=== PATIENT | female | born 1985 | race Asian ===

== ENCOUNTER 2019-03-26 06:31 | Day surgery (SDC) | payer BC, OTHER ==
[~2019-03-26 06:31] MED LIST: Sodium Chloride 0.9% 10 ML SDV IV PRN; Sodium Chloride 0.9% 10 ML Syringe FLUSH PRN; Sodium Chloride 0.9% 2.5 ML Syringe FLUSH PRN
--- NOTE | 2019-03-26 07:03 | PCM.PREANE ---
Preanesthetic Assessment - Anesthesia/Transfusion/Family Hx Anesthesia History: Prior Anesthesia Without Reaction Family History of Anesthesia Reaction: No Transfusion History: No Prior Transfusion(s) Intubation History: Unknown - Review of Systems General: No Symptoms Pulmonary: No Symptoms Cardiovascular: No Symptoms Gastrointestinal: No Symptoms Neurological: No Symptoms Other: Reports: None - Physical Assessment Vital Signs: Last Vital Signs Temp 36.0 C 03/26/19 06:40 Pulse 66 03/26/19 06:40 Resp 16 03/26/19 06:40 BP 90/55 L 03/26/19 06:40 Pulse Ox 100 03/26/19 06:40 Height: 5 ft 2 in Weight: 60.328 kg ASA Class: 1 Mental Status: Alert & Oriented x3 Airway Class: Mallampati = 1 Dentition: Reports: Normal Dentition Thyro-Mental Finger Breadths: 3 Mouth Opening Finger Breadths: 3 ROM/Head Extension: Full Lungs: Clear to Auscultation, Normal Respiratory Effort Cardiovascular: Regular Rate, Regular Rhythm - Allergies Allergies/Adverse Reactions: Allergies Allergy/AdvReac Type Severity Reaction Status Date / Time No Known Allergies Allergy Verified 03/21/19 13:40 - Blood Blood Available: No - Anesthesia Plan Pre-Op Medication Ordered: None - Acknowledgements Anesthesia Type Planned: MAC Pt an Appropriate Candidate for the Planned Anesthesia: Yes Alternatives and Risks of Anesthesia Discussed w Pt/Guardian: Yes PreAnesthesia Questionnaire - Past Health History Medical/Surgical History: Denies Medical/Surgical History HEENT History: Reports: Other (See Below) Other HEENT History: wears glasses PLAN COORDINATOR History: Reports: Other OB/BYN History: c/s x2 - Past Surgical History Head Surgeries/Procedures: Reports: None Female Surgical History: Reports: Section Other Female Surgeries/Procedures: x3 - SUBSTANCE USE Smoking Status *Q: Never Smoker Recreational Drug Use History: No - HOME MEDS Home Medications: Home Meds Multivitamin [Daily Multiple Vitamin] 1 tab PO DAILY 03/21/19 [History] - CURRENT (IN HOUSE) MEDS Current Meds: Current Medications Sodium Chloride (Saline Flush) 10 ml FLUSH ASDIRECTED PRN PRN Reason: Keep Vein Open Sodium Chloride (Saline Flush) 2.5 ml FLUSH ASDIRECTED PRN PRN Reason: Keep Vein Open Sodium Chloride (Normal Saline) 10 ml IV ASDIRECTED PRN PRN Reason: IV Use
[2019-03-26] MEDS ORDERED: Lactated Ringers 1,000 ML IV SCH (07:15)
[2019-03-26] MEDS ORDERED: Lidocaine 2% 100 MG/5 ML Syringe ONE (07:23)
[2019-03-26] MEDS ORDERED: Ondansetron 4 MG/2 ML SDV ONE (07:23)
[2019-03-26] MEDS ORDERED: Dexamethasone 4 MG/ML 5 ML MDV ONE (07:23)
[2019-03-26] MEDS ORDERED: Propofol 200 MG/20 ML SDV ONE (07:24)
[2019-03-26] MEDS ORDERED: Midazolam 1 MG/ML 2 ML SDV ONE (07:24)
[2019-03-26] MEDS ORDERED: fentaNYL 250 MCG/5 ML SDV ONE (07:24)
[2019-03-26] MEDS ORDERED: Lidocaine 1% with EPINEPHrine 1:100,000 20 ML MDV ONE (07:26)
--- NOTE | 2019-03-26 08:29 | PCM.OPNOTE ---
- General Post-Op/Procedure Note Date of Surgery/Procedure: 03/26/19 Operative Procedure(s): LEEP of cervix Findings: STEFAN II Pre Op Diagnosis: STEFAN II Post-Op Diagnosis: Same Anesthesia Technique: MAC Primary Surgeon: Yris Sen Fluid Replacement, Intraop: 500 EBL in mLs: 5 Complications: none known Condition: Good Free Text/Narrative:: Dictation [id number]
--- NOTE | 2019-03-26 08:52 | PCM.POSTAN ---
POST ANESTHESIA ASSESSMENT - MENTAL STATUS Mental Status: Alert, Oriented - VITAL SIGNS Vital Signs: Last Vital Signs Temp 36.4 C 03/26/19 08:25 Pulse 65 03/26/19 08:44 Resp 17 03/26/19 08:44 BP 88/50 L 03/26/19 08:44 Pulse Ox 99 03/26/19 08:44 - RESPIRATORY Respiratory Status: Respiratory Rate WNL, Airway Patent, O2 Saturation Stable - CARDIOVASCULAR CV Status: Pulse Rate WNL, Blood Pressure Stable - GASTROINTESTINAL GI Status: No Symptoms - PAIN Pain Score: 0 - POST OP HYDRATION Hydration Status: Adequate & Stable - OBSERVATIONS Free Text/Narrative:: No anesthesia problems
--- NOTE | 2019-03-26 09:10 | PCM48HPAN ---
Post Anesthesia Note - EVALUATION WITHIN 48HRS OF ANESTHETIC Vital Signs in Normal Range: Yes Patient Participated in Evaluation: Yes Respiratory Function Stable: Yes Airway Patent: Yes Cardiovascular Function Stable: Yes Hydration Status Stable: Yes Pain Control Satisfactory: Yes Nausea and Vomiting Control Satisfactory: Yes Mental Status Recovered: Yes Vital Signs: Last Vital Signs Temp 35.7 C 03/26/19 08:53 Pulse 61 03/26/19 08:53 Resp 16 03/26/19 08:53 BP 103/59 L 03/26/19 08:53 Pulse Ox 99 03/26/19 08:53 - COMMENTS/OBSERVATIONS Free Text/Narrative:: No anesthesia problems
[2019-03-26 09:14] VITALS: BP 88/49; PULSE 63
--- NOTE | 2019-03-26 13:01 | OR ---
SURGEON: Yris Sen M.D. DATE OF PROCEDURE: 03/26/2019 PREOPERATIVE DIAGNOSIS: Cervical intraepithelial neoplasia 2. POSTOPERATIVE DIAGNOSIS: Cervical intraepithelial neoplasia 2. PROCEDURE: Loop electrosurgical excision procedure of cervix. ANESTHESIA: MAC. ESTIMATED BLOOD LOSS: 5 mL. FLUIDS: 500 mL of crystalloid. COMPLICATIONS: Unknown. FINDINGS: STEFAN 2. DISPOSITION: The patient to PACU, stable. PROCEDURE DETAILS: Norman is a 33-year-old, G2, P2, who has colposcopy with biopsy-proven moderate cervical dysplasia. At this time, further intervention in the form of LEEP has been discussed with her and she would like to proceed in this manner. Risks of the procedure have been discussed and proper consent obtained. The patient was taken to operating room where she underwent MAC anesthetic, was placed in modified dorsal lithotomy position, and was prepped and draped in the usual fashion. A coated speculum was introduced in the vagina as well as sidewall retractor after time-out was performed. The cervix was prepped with Lugol solutions followed by performing a cervical block using 1% lidocaine with epinephrine. Please see nurse's notes for total local dispensed during the procedure. Using a 20 x 8 mm loop, a single pass excision was performed. This specimen will be sent to Pathology. A 5 mm endocervical excisional hat was performed followed by canalization of the endocervical os. The wound bed was now cauterized with rollerball and Monsel's was gently placed. Hemostasis appeared evident. The patient tolerated the procedure well. All instruments were removed from the vagina. Sponge and needle count was correct. The patient will go to PACU in stable condition. Specimen, pathology. MELISSA / JUAN MANUEL /[id number]
== END 2019-03-26 09:18 | disposition home or self-care (01) ==
LOC: MW.SDS 06:31
PROVIDERS: ATTEND Obstetrics & Gynecology
DX: R87.613 High grade squamous intraepithelial lesion on cytologic smear of cervix (HGSIL) (principal)
CPT/HCPCS: 36415; 57522; 84703; 85027; 88305; 88307; J1100; J2001; J2250; J2405; J2704; J3010; J7120; 00940